=== PATIENT | female | born 1965 | race Caucasian/White ===

== ENCOUNTER 2017-07-25 21:50 | Emergency (ER) | payer SELFPAY ==
[2017-07-25 22:43] LABS: BASOPHIL % 0.5 % (0-2)
[2017-07-25 22:50] VITALS: BP 90/70
[2017-07-25 22:55] LABS: CALCIUM 7.3 mg/dL (8.5-10.1); CHLORIDE SERUM 111 mmol/L (98-107); CREATININE SERUM 0.8 mg/dL (0.6-1.0); GFR1 > 60 mL/min; GLUCOSE SERUM 100 mg/dL (74-106); POTASSIUM SERUM 3.5 mmol/L (3.5-5.1); SODIUM SERUM 142 mmol/L (136-145)
[2017-07-25 22:59] LABS: PLATELET COUNT 417 x10^3mcL (130-400); RED CELL DISTRIBUTION WIDTH 18.5 % (11.5-14.5)
== END 2017-07-25 22:50 | disposition short-term general hospital (02) ==
LOC: ED 21:50
PROVIDERS: Emergency Medicine
PROC: 3E033GC Introduction of Other Therapeutic Substance into Peripheral Vein, Percutaneous Approach (ICD-10-PCS; principal; 2017-07-25)
DX: N93.9 Abnormal uterine and vaginal bleeding, unspecified (principal); D50.0 Iron deficiency anemia secondary to blood loss (chronic); Z90.710 Acquired absence of both cervix and uterus
CPT/HCPCS: P9016